=== PATIENT | male | born 1975 | race Hispanic/Latino ===

== ENCOUNTER → 2020-06-23 | Outpatient (CLI) | payer OTHER ==
--- NOTE | 2020-06-24 08:15 | REP ---
INDICATION: ABN FINDING OF LUNG COMPARISON: X-ray dated 05/20/2020 TECHNIQUE: Axial noncontrast images from the thoracic inlet to the upper abdomen with coronal and sagittal reformations. This CT examination was performed using the following dose reduction techniques: Automated exposure control, adjustment of mA and/or kv according to the patient's size, and use of iterative reconstruction technique. FINDINGS: Bilateral lung keith are well aerated, symmetric and clear. No consolidation, suspicious nodule, or mass lesion. Tracheobronchial tree is patent. No effusion. No pneumothorax. No adenopathy. Mediastinum demonstrates normal thoracic aorta, pulmonary vasculature, and heart/pericardium. Surrounding musculoskeletal structures are intact. Limited upper abdomen demonstrates normal bilateral adrenal glands. IMPRESSION: Normal noncontrast chest CT. No acute mediastinal or pleuroparenchymal process. <Electronically signed by Harmeet Preston > 06/24/20 0844
== END ==
LOC: M RAD 12:30
PROVIDERS: ATTEND Physician Assistant
DX: R91.8 Other nonspecific abnormal finding of lung field (principal)

== ENCOUNTER → 2020-07-15 | Outpatient (CLI) | payer OTHER ==
[~2020-07-15] MED LIST: METHACHOLINE KIT (J7674) INH ONE
--- NOTE | 2020-07-15 11:24 | PFTRPT ---
Height: 67.00 Inches Weight: 140.00 Lbs BSA: 1.74 Diagnosis: R05 DATE: 07/15/2020 ORDERED BY: SARABJIT Bowen QUALITY: Study of excellent technical quality. PROCEDURE: Under protocol, methacholine was administered. Even after a maximal dose of 25 mg or 188.875 CDUs, no provocation dose ever achieved. IMPRESSION: Negative methacholine challenge study. MTDD
== END ==
LOC: M CARPUL 10:43
PROVIDERS: ATTEND Physician Assistant
DX: R05 Cough (principal)
CPT/HCPCS: 94070; J7674

== ENCOUNTER → 2020-08-06 | Outpatient (CLI) | payer OTHER ==
--- NOTE | 2020-08-06 08:30 | REP ---
INDICATION: SPLENOMEGALY, LEFT LEG LUMP COMPARISON: None TECHNIQUE: Realtime grayscale B-mode ultrasound examination using linear high-frequency transducer. FINDINGS: Directed ultrasound examination over the left lower extremity at the site of palpable mass demonstrates a small subcutaneous cystic collection with internal debris measuring 2.8 x 1.3 x 0.3 cm. IMPRESSION: 1. Small nonspecific cystic collection. <Electronically signed by Harmeet Preston > 08/06/20 0827
--- NOTE | 2020-08-06 08:33 | REP ---
INDICATION: SPLENOMEGALY, LEFT LEG LUMP. COMPARISON: CT chest 06/23/2020 TECHNIQUE: Sonographic evaluation of the left upper quadrant. FINDINGS: Spleen is homogeneous and measures 9 x 8.6 x 2.9 cm. This gives calculated splenic index of 224 within normal range less than 480. Likewise, recent chest CT shows the spleen in its entirety with a vertical height of the 8.7 cm. There is no perisplenic fluid. The adjacent left kidney is 10.8 x 4.3 x 3.7 cm. There are 2 small cysts seen with the upper pole 10.6 x 6.4 mm cyst and a lower pole 7.5 x 7 x 3 mm cyst. No solid mass, hydronephrosis, stone or perinephric fluid. No generalized ascites or other abnormality visible in the left upper quadrant. IMPRESSION: 1. No evidence of splenomegaly, focal splenic lesion or perisplenic mass. No ascites. 2. Left kidney with 2 small simple cysts, no other finding. <Electronically signed by James Bueno > 08/06/20 7145
== END ==
LOC: M RAD 07:48
PROVIDERS: ATTEND Internal Medicine Medical Oncology
DX: R22.42 Localized swelling, mass and lump, left lower limb (principal); N28.1 Cyst of kidney, acquired

== ENCOUNTER → 2020-11-18 | Outpatient (CLI) | payer OTHER ==
[~2020-11-18] MED LIST changes: -METHACHOLINE KIT (J7674) INH ONE; +TRAM300T9 PO
[2020-11-18 15:30] LABS: APPEARANCE, URINE CLEAR (CLEAR); BACTERIA, URINE AUTO NEGATIVE (NEGATIVE); BILIRUBIN, URINE AUTO NEGATIVE (NEGATIVE); BLOOD, URINE BLOOD NEGATIVE (NEGATIVE); COLOR, URINE YELLOW (YELLOW); GLUCOSE, URINE (UA) AUTO NEGATIVE (NEGATIVE); KETONE, URINE AUTO NEGATIVE (NEGATIVE); LEUKOCYTE ESTERASE, URINE AUTO NEGATIVE (NEGATIVE); MUCUS, URINE SMALL (NEGATIVE); NITRITE, URINE AUTO NEGATIVE (NEGATIVE); PROTEIN, URINE AUTO NEGATIVE (NEGATIVE); RBC, URINE AUTO 0 /HPF (0-3); SQUAMOUS EPITHELIAL CELL UR AU 0 /HPF (0-6); UROBILINOGEN, URINE AUTO 0.2 mg/dL (0.0-2.0); WBC, URINE AUTO 1 /HPF (0-3)
[2020-11-18 15:31] LABS: BASO % 0.7 % (0.0-1.0); EOS # 0.1 10^3/uL (0.0-0.5); EOS % 2.3 % (0.0-3.0); HEMATOCRIT 45.1 % (42.0-52.0); HEMOGLOBIN 14.6 g/dl (13.5-17.5); LYMPH % 31.8 % (24.0-44.0); MEAN CORPUSCULAR HEMOGLOBIN 25.9 pg (27.0-33.0); MEAN CORPUSCULAR HGB CONC 32.4 g/dl (32.0-36.5); MEAN CORPUSCULAR VOLUME 80.1 fl (80.0-96.0); MONO # 0.4 10^3/uL (0.0-0.8); NEUTROPHILS # 1.6 10^3/uL (1.5-8.5); NEUTROPHILS % 53.2 % (36.0-66.0); PLATELET COUNT, AUTOMATED 226 10^3/uL (150-450); RED BLOOD COUNT 5.63 10^6/uL (4.30-6.10)
[2020-11-18 15:56] LABS: TOTAL PROTEIN,RANDOM URINE 9.5 MG/DL (0.0-12.0)
[2020-11-18 15:57] LABS: ALBUMIN 3.9 GM/DL (3.2-5.2); ALT/SGPT 31 U/L (12-78); BILIRUBIN,TOTAL 0.5 MG/DL (0.2-1.0); BLOOD UREA NITROGEN 15 MG/DL (7-18); CALCIUM LEVEL 9.4 MG/DL (8.5-10.1); CARBON DIOXIDE LEVEL 30 MEQ/L (21-32); CHLORIDE LEVEL 106 MEQ/L (98-107); COMPLEMENT C3 93 MG/DL (90-180); COMPLEMENT C4 24 MG/DL (10-40); CPK CREATINE PHOSPHOKINASE 418 U/L (39-308); CREATININE FOR GFR 1.14 MG/DL (0.70-1.30); GLOMERULAR FILTRATION RATE > 60.0 (>60); GLUCOSE, FASTING 92 MG/DL (70-100); POTASSIUM SERUM 4.1 MEQ/L (3.5-5.1); RHEUMATOID FACTOR QUANT < 10.0 IU/ML (<15.0); SODIUM LEVEL 139 MEQ/L (136-145); TOTAL PROTEIN 7.2 GM/DL (6.4-8.2)
[2020-11-18 16:11] LABS: ERYTHROCYTE SEDIMENTATION RATE 2 mm/hr (0-15)
== END ==
LOC: M PLALAB 12:28
PROVIDERS: ATTEND Internal Medicine Rheumatology
DX: R76.8 Other specified abnormal immunological findings in serum (principal); M25.50 Pain in unspecified joint; D72.810 Lymphocytopenia

== ENCOUNTER 2021-03-01 17:30 | Emergency (ER) | payer OTHER ==
[~2021-03-01] VITALS: Ht 170.2 cm; Wt 63.4 kg
--- OUTSIDE RECORDS SUMMARY | 2021-03-01 17:36 | CCD ---
Author Author [facility] Organization [facility] Address Unknown Phone Unavailable Care Team Providers Care Computer Programmer Chief Name Role Phone Alyson Machado Unavailable PROBLEMS Type Condition ICD9-CM Code [id number] Code Onset Dates Condition S tatus W/U Status Risk SNOMED Code Notes Problem Lymphopenia D72.810 Active confirmed [id number] ALLERGIES No Known Allergies ENCOUNTERS from 1975 to 2021-02-01 Encounter Location Date Provider Diagnosis [facility] Rhe[facility] [address] [place] [address] [place] [address] Jan, Alysonjose Machado STEPHANIA positive R76.8 ; Polyart hralgia M25.50 ; Lymphopenia D72.810 ; HLA B27 (HLA B27 positive) Z15.89 and Elevated CPK R74.8 IMMUNIZATIONS No Information SOCIAL HISTORY Tobacco Use: Social History Observation Description Date Details (start date - stop date) Sex Assigned At : Social History Observation Description Sex Assigned At Unknown Alcohol Screening: Question Answer Notes Did you have a drink containing alcohol in the past year? No Points 0 Interpretation Negative Tobacco Use: Question Answer Notes Are you a: never smoker REASON FOR REFERRAL No Information VITAL SIGNS Weight 144.6 lbs Jan, Weight-kg 65.59 kg Jan, Height 67 in Jan, BMI 22.65 kg/m2 Jan, Heart Rate 61 /min Jan, Respiratory Rate 18 /min Jan, Temperature 98.0 degrees Fahrenheit Jan, Oximetry 99% Jan, Blood pressure systolic 108 mm Hg Jan, Blood pressure diastolic 58 mm Hg Jan, MEDICATIONS Medication SIG (Take, Route, Frequency, Duration) Notes Start Da te End Date Status traMADol HCl 50 MG 1 tablet as needed Orally Once a day 4 times a day Active Ibuprofen 800 MG 1 tablet with food or milk as needed Ora lly Three times a day Not-Taking Zanaflex 4 MG 1 tablet as needed Orally HS for 30 Days Active PROCEDURES No Information RESULTS No Results REASON FOR VISIT Patient is here for a follow up appointment, last being seen 11/03/20. Denies any new concerns or complaints at this time. 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 splenomegaly with night time cough and occasional difficulty swallowing ? from GERD RF negative CCP xrays ordered pending Jan, Polyarthralgia (ICD-10 - M25.50) mild lateral deviation of right MCP right hip ER pain left hip trochanteric tenderness paraspinal muscle spams bialteral lumbar area right plantar fascitis awaiting surgery h/o chlamydia infection treated at 26 years of age STEPHANIA positive ? musculoskeletal from trochanteric bursitis , muscle spasm and spinal stenosis ( given relief on bending forward) eval for spondyloarthropathy given h/o chalmdia , plantar fasciits and back issues , HLA B27 positive d/c zanaflex given no improvement can try Voltaren / diclofenac gel as needed for the left hip pain Xrays ordered for further eval will order MRI pelvis to eval for sacroilitis after Jan, Lymphopenia (ICD-10 - D72.810) 07/2020 CBC with WBC 3.7 and abs lymphocyte 1 08/2020 CBC with WBC 3.5 and ALC 1 with ? splenomegaly r/o feltys - RF, CCP negative no features of SLE/ sjogrens Jan, HLA B27 (HLA B27 positive) (ICD-10 - Z15.89) POSITIVE ordered Xrays after will order MRI pelvis to eval for sacroilitis Jan, Elevated CPK (ICD-10 - R74.8) 418 aldolase normal STEPHANIA negative C3, C4 normal normal muscle strength close monitor ? body habitus and work out Jan, Other PATIENT INSTRUCTIONS : XRAYS ordered MRI pelvis normal recommend ortho follow up for eval of right hip issues PLAN OF TREATMENT Medication Medication Name Sig Start Date Stop Date Zanaflex 4 MG 1 tablet as needed Orally HS for 30 Days Treatment Notes Assessment Notes Clinical Notes STEPHANIA positive unclear titer , repe at negativeDsDNA, Enrique , SSA, SSB, RETIREMENT PLAN COUNSELOR negativemainly back and hip pains? splenomegalywith night time cough and occasional difficulty swallowing ? from GERDRF negative CCPxrays ordered pending Polyarthralgia mild lateral deviati on of right MCPright hip ER painleft hip trochanteric tendernessparaspinal muscle spams bialteral lumbar arearight plantar fascitis awaiting surgeryh/o chlamydia infection treated at 26 years of ageANA positive? musculoskeletal from trochanteric bursitis , muscle spasm and spinal stenosis ( given relief on bending forward)eval for spondyloarthropathy given h/o chalmdia , plantar fasciits and back issues , HLA B27 positived/c zanaflex given no improvementcan try Voltaren / diclofenac gel as needed for the left hip painXrays ordered for further evalwill order MRI pelvis to eval for sacroilitis after Lymphopenia 1CBC with WBC 3 .7 and abs lymphocyte /1CBC with WBC 3.5 and ALC 1with ? splenomegalyr/o feltys - RF, CCP negativeno features of SLE/ sjogrens HLA B27 (HLA B27 positive) POSITIVEorder ed Xraysafter will order MRI pelvis to eval for sacroilitis Elevated CPK 418aldolase normalAN A negativeC3, C4 normalnormal muscle strengthclose monitor? body habitus and work out Treatment Notes Test Name Order Date [facility] MRI PELVIS WITHOUT CONTRAST 2021-01-13 Next Appt Details 2 Months Reason: Provider Name:Alyson Machado, 10:45:00 AM, [address] [place] [address], , [place], [place], [facility], Insurance Providers Payer Name Payer Address Payer Phone Insured Name Patient Relati onship to Insured Coverage Start Date Coverage End Date [employer] DUTY [id number] [facility] [id number] CARLOS MARS self
--- OUTSIDE RECORDS SUMMARY | 2021-03-01 17:36 | CCD ---
Author Author [facility] Organization [facility] Address Unknown Phone Unavailable Care Team Providers Care Political Science Research Assistant Name Role Phone YOJANA GANN Unavailable Unavailable Piotr, E SERVICE TRANSFORMER REPAIR SUPERVISOR Glory Unavailable [phone] Piotr, E SERVICE TRANSFORMER REPAIR SUPERVISOR Glory Unavailable [phone] Piotr, E SERVICE TRANSFORMER REPAIR SUPERVISOR Glory Unavailable [phone] Piotr, E SERVICE TRANSFORMER REPAIR SUPERVISOR Glory Unavailable [phone] Piotr, E SERVICE TRANSFORMER REPAIR SUPERVISOR Glory Unavailable [phone] Piotr, E SERVICE TRANSFORMER REPAIR SUPERVISOR Glory Unavailable [phone] Piotr, E SERVICE TRANSFORMER REPAIR SUPERVISOR Glory Unavailable [phone] Piotr, E SERVICE TRANSFORMER REPAIR SUPERVISOR Glory Unavailable [phone] Piotr, E SERVICE TRANSFORMER REPAIR SUPERVISOR Glory Unavailable [phone] Piotr, E SERVICE TRANSFORMER REPAIR SUPERVISOR Glory Unavailable [phone] Piotr, E SERVICE TRANSFORMER REPAIR SUPERVISOR Glory Unavailable [phone] Piotr, E SERVICE TRANSFORMER REPAIR SUPERVISOR Glory Unavailable [phone] Piotr, E SERVICE TRANSFORMER REPAIR SUPERVISOR Glory Unavailable [phone] Piotr, E SERVICE TRANSFORMER REPAIR SUPERVISOR Glory Unavailable [phone] Piotr, E SERVICE TRANSFORMER REPAIR SUPERVISOR Glory Unavailable [phone] Piotr, E SERVICE TRANSFORMER REPAIR SUPERVISOR Glory Unavailable [phone] Piotr, E SERVICE TRANSFORMER REPAIR SUPERVISOR Glory Unavailable [phone] Piotr, E SERVICE TRANSFORMER REPAIR SUPERVISOR Glory Unavailable [phone] Piotr, E SERVICE TRANSFORMER REPAIR SUPERVISOR Glory Unavailable [phone] Piotr, E SERVICE TRANSFORMER REPAIR SUPERVISOR Glory Unavailable [phone] Piotr, E SERVICE TRANSFORMER REPAIR SUPERVISOR Glory Unavailable [phone] Piotr, E SERVICE TRANSFORMER REPAIR SUPERVISOR Glory Unavailable [phone] MO, M FRANCISCO PA Unavailable Unavailable MO, M FRANCISCO PA Unavailable Unavailable MO, M FRANCISCO PA Unavailable Unavailable MO, M FRANCISCO PA Unavailable Unavailable MO, M FRANCISCO PA Unavailable Unavailable MO, M FRANCISCO PA Unavailable Unavailable MO, M FRANCISCO PA Unavailable Unavailable MO, M FRANCISCO PA Unavailable Unavailable MO, M FRANCISCO PA Unavailable Unavailable MO, M FRANCISCO PA Unavailable Unavailable MO, M FRANCISCO PA Unavailable Unavailable MO, M FRANCISCO PA Unavailable Unavailable MO, M FRANCISCO PA Unavailable Unavailable MO, M FRANCISCO PA Unavailable Unavailable MO, M FRANCISCO PA Unavailable Unavailable MO, M FRANCISCO PA Unavailable Unavailable MO, M FRANCISCO PA Unavailable Unavailable MO, M FRANCISCO PA Unavailable Unavailable MO, M FRANCISCO PA Unavailable Unavailable MO, M FRANCISCO PA Unavailable Unavailable MO, M FRANCISCO PA Unavailable Unavailable MO, M FRANCISCO PA Unavailable Unavailable MO, M FRANCISCO PA Unavailable Unavailable MO, M FRANCISCO PA Unavailable Unavailable MO, M FRANCISCO PA Unavailable Unavailable MO, M FRANCISCO PA Unavailable Unavailable MO, M FRANCISCO PA Unavailable Unavailable MO, M FRANCISCO PA Unavailable Unavailable MO, M FRANCISCO PA Unavailable Unavailable MO, M FRANCISCO PA Unavailable Unavailable MO, M FRANCISCO PA Unavailable Unavailable MO, M FRANCISCO PA Unavailable Unavailable MO, M FRANCISCO PA Unavailable Unavailable MO, M FRANCISCO PA Unavailable Unavailable MO, M FRANCISCO PA Unavailable Unavailable Re-disclosure Warning The records that you are about to access may contain information from federally-assisted alcohol or drug abuse programs. If such information is present, then the following federally mandated warning applies: This information has been disclosed to you from records protected by federal confidentiality rules (42 CFR part 2). The federal rules prohibit you from making any further disclosure of this information unless further disclosure is expressly permitted by the written consent of the person to whom it pertains or as otherwise permitted by 42 CFR part 2. A general authorization for the release of medical or other information is NOT sufficient for this purpose. The Federal rules restrict any use of the information to criminally investigate or prosecute any alcohol or drug abuse patient.The records that you are about to access may contain highly sensitive health information, the redisclosure of which is protected by Article 27-F of the [facility] Public Health law. If you continue you may have access to information: Regarding HIV / AIDS; Provided by facilities licensed or operated by the [facility] Office of Mental Health; or Provided by the [facility] Office for People With Developmental Disabilities. If such information is present, then the following [facility] mandated warning applies: This information has been disclosed to you from confidential records which are protected by state law. State law prohibits you from making any further disclosure of this information without the specific written consent of the person to whom it pertains, or as otherwise permitted by law. Any unauthorized further disclosure in violation of state law may result in a fine or retirement sentence or both. A general authorization for the release of medical or other information is NOT sufficient authorization for further disc losure. Encounters Encounter Providers Location Date Indications Data Source(s ) Outpatient [address] [facility] [place] [id number] 01/13/2021 12:00:00 AM EDT eCW1 ([facility]) Unknown [address] [facility] [place] [id number] 11/24/2020 12:00:00 AM EDT eCW1 ([facility]) Outpatient [address] [facility] [place] [address] 11/03/2020 12:00:00 AM EDT eCW1 ([facility]) Outpatient Admitter: YOJANA GANNReferrer: YOJANA GANN 07/27/2020 12:00:00 AM EDT Decreased white blood cell count, unspecified [facility] Decreased white blood cell count, unspec ified Outpatient Referrer: Glory Saldaña _[id number] 07/19/2020 01 :31:36 PM EDT [facility] Outpatient Attender: FRANCISCO Kohler/[place] 07/06/2020 08:00:00 AM EST [facility] ([facility] ) Outpatient Referrer: Glory Saldaña 06/29/2020 07:41:04 AM ES T [facility] Outpatient 06/29/2020 07:12:43 AM EST [facility] Outpatient Attender: FRANCISCO Kohler/[place] 06/08/2020 09:30:00 AM EST [facility] Medications Medication Brand Name Start Date Product Form Dose Route Admi nistrative Instructions Pharmacy Instructions Status Indications Reaction Description Data Source(s) tizanidine 4 MG Oral Tablet [Zanaflex] Zanaflex 4 MG Zanafle x 4 MG 11/03/2020 12:00:00 AM EDT 1.0 {tablet_as_needed} active Zanaflex 4 MG eCW1 ([facility]) Insurance Providers Payer name Policy type / Coverage type Policy ID Covered democrat ID Covered democrat's relationship to spain Policy [place] Plan Information [facility] [id number] Self [id number] [facility] ACTIVE DUTY [id number] Problems, Conditions, and Diagnoses Code Display Name Description Problem Type Effective Dates Data Source(s) D72.819 Decreased white blood cell count, unspec ified Decreased white blood cell count, unspecified Diagnosis 07/27/2020 12:39:00 PM EDT [facility] D72.810 [id number] Lymphopenia Problem 11/03/2020 12:00:00 AM E DT eCW1 ([facility]) Surgeries/Procedures Procedure Description Date Indications Data Source(s) Bronchospasm Evaluation 06/29/2020 12:00:00 AM EST [facility] ([facility], ) Plethysmography Determination Lung Volumes & Per Airway Resi st 06/29/2020 12:00:00 AM EST [facility] ([facility] ) DIFFUSING CAPACITY 06/29/2020 12:00:00 AM EST [facility] ([facility], ) Spirometry 06/08/2020 12:00:00 AM SELMA PAZ ([facility], ) Results ID Date Data Source [id number] 07/29/2020 04:43:00 PM EDT [facility] Hematopathology ReportName: CARLOS BARTHMRN: [id number] Number: [id number] Date: 07/27/2020 00:00Received Date: 07/28/2020 13:34Physician(s): YOJANA GANN MD ADJAPONG, OPOK[place],[facility]) ReceivedA: Blood, Flow Cytometry; Received 2 green top PB (2 EDTA PB to Molecular)Clinical HistoryLeukopeniaTEST REQUESTED/PERFORMED: Flow cytometry analysis DiagnosisFlow cytometry of blood: No evidence of leukemia or non-Hodgkin lymphoma.Dana Law MD ; Hematopathology FellowElectronically Signed By MILADY GUAJARDO M.D. Attending Pathologist 116:43:18The attending pathologist named above attests that he/she has personallyreviewed the relevant preparation(s) for the specimen(s) and rendered thefinal diagnosis. ProceduresFlow Cytometry Date Ordered:07/28/2020 Status: Signed Out07/29/2020 InterpretationPERIPHERAL BLOOD: CBC performed at [facility] (07/27/20)WBC *3.7 K/uLRBC 5.31 M/uLHgb 14.2 g/dLHct 42.8 %MCV 80.6 fLMCH *26.7 pgMCHC 33.2 g/dLRDW 13.1 %Platelets 204 K/ulDifferential Count (automated):61.6 % Neutrophils 1.4 % Eosinophils 0.5 % Syzalrhad34.6 % Lymphocytes 0.3 % Immature Granulocytes 8.6 % Monocytes-------100.0 % A peripheral blood film shows lymphopenia. Lymphoid Panel: DanicaachoFelix [id number] following markers were assayed: CD45 (gate), CD2, CD3, CD4, CD5, CD7,CD8, CD10, CD19, CD20, CD38, CD56, CD57, [place], and Lambda.#events: [id number]: 99%Flow Cyto metry Differential (CD45/SSC)Lymphocyte Gwinn: 24%CD45 dim Gwinn: 0%Monocyte Gwinn: 3%Granulocyte Gwinn: 68%Nucleated/Erythroid Gwinn: 1%The lymphocyte gate showsB- cells (CD19): 11%T-cells (CD3): 61%NK-cells (CD3-/CD56+): 16%[place]/Lambda Ratio: 1.2CD4/CD8 Ratio: 2.9Results: (expressed as % of lymphocyte gate)T-cell Markers: CD2 = 73, CD3 = 61, CD3/CD4 = 42, CD3/CD8 = 15, CD5 = 68,CD7 = 73, CD3/57 = 6B-cell markers: [place] = 9, Lambda = 4, CD19 = 11, CD20 = 18, CD19/10 = 3,CD19/CD5 = 2, CD38/CD20 = 10Light chain as % of B-Cells: CD19/[place] = 43, CD19/Lambda = 40CD19/CD5/[place] = 1, CD19/CD5/Lambda = 1CD19/CD10/[place] = 8, CD19/CD10/Lambda = 6NK cell Markers: CD56 = 22, CD57 = 16Other Markers: CD10 = 4, CD38 = 52 Results-CommentsLymphocytes consist predominantly of T cells with normal expression of panT-cell markers and a normal CD4/CD8 ratio, normal proportions of NK andcytotoxic T cells, and polyclonal B cells.Procedure Electronically Signed By:MILADY GUAJARDO M.D.07/29/2020 This report may include one or more immunohistochemical stain/fluorochromeconjugated monoclonal antibody results that use analyte specific reagents.All positive and negative controls have been reviewed by the attendingpathologist and are satisfactory. The tests were developed and theirperformance characteristics determined by [facility] Pathology department.They have not been cleared or approved by the US Food and DrugAdministration. The FDA has determined that such clearance or approval isnot necessary. Name Value Range Interpretation Code Description Data Dominga rce(s) Supporting Document(s) ID Date Data Source [id number] 06/08/2020 01:28:00 PM EST [facility] Name Value Range Interpretation Code Description Data Dominga rce(s) Supporting Document(s) SARS coronavirus 2 RNA Not Detected [facility] [place] This lab was ordered by [facility] Laboratory and reported by [facility]. Procedure Social History Code Duration Value Status Description Data Source(s ) Smoking 01/13/2021 12:00:00 AM EDT UNK completed eCW1 ([facility]) Smoking 01/13/2021 12:00:00 AM EDT UNK completed eCW1 ([facility]) Smoking 11/03/2020 12:00:00 AM EDT UNK completed eCW1 ([facility]) Smoking 07/06/2020 12:00:00 AM EST Patient has never smoked co mpleted Patient has never smoked [facility] ([facility], ) Vital Signs ID Date Data Source UNK Name Value Range Interpretation Code Description Data Source(s) Body height 67 [in_i] 67 [in_i] eCW1 ([facility]) Body weight 144.6 [lb_av] 144.6 [lb_av] eCW1 ([facility]) Body weight 65.59 kg 65.59 kg eCW1 ([facility]) Diastolic blood pressure 58 mm[Hg] 58 mm[Hg] eCW1 ([facility]) Body mass index (BMI) [Ratio] 22.65 kg/m2 22.65 kg/m2 eCW1 ([facility]) Heart rate 61 /min 61 /min eCW1 ([facility]) Respiratory rate 18 /min 18 /min eCW1 (Replaced by [facility]) Body temperature 98.0 [degF] 98.0 [degF] eCW1 ( [facility]) Systolic blood pressure 108 mm[Hg] 108 mm[Hg] e CW1 ([facility]) Body weight 148.4 [lb_av] 148.4 [lb_av] eCW1 ([facility]) Body weight 67.3 kg 67.3 kg eCW1 ([facility]) Body height 67 [in_i] 67 [in_i] eCW1 ([facility]) Body mass index (BMI) [Ratio] 23.24 kg/m2 23.24 kg/m2 eCW1 ([facility]) Heart rate 64 /min 64 /min eCW1 ([facility]) Respiratory rate 18 /min 18 /min eCW1 (Replaced by [facility]) Body temperature 97.4 [degF] 97.4 [degF] eCW1 ( [facility]) Systolic blood pressure 118 mm[Hg] 118 mm[Hg] e CW1 ([facility]) Diastolic blood pressure 76 mm[Hg] 76 mm[Hg] eCW1 ([facility]) Systolic blood pressure 118 mm[Hg] 118 mm[Hg] M EDENT ([facility], ) Body height 67 [in_i] 67 [in_i] [facility] 5'7" Diastolic blood pressure 70 mm[Hg] 70 mm[Hg] [facility] ([facility]) Heart rate 54 /min 54 /min [facility] ([facility]) Oxygen saturation in Arterial blood by Pulse oximetry 99 % 99 % [facility] ([facility]) Body temperature 97.3 [degF] 97.3 [degF] [facility] ([facility]) Body weight 138.00 [lb_av] 138.00 [lb_av] MED[facility] T ([facility]) Body mass index (BMI) [Ratio] 21.6 kg/m2 21.6 k g/m2 [facility] ([facility]) [place] body weight 148 [lb_av] 148 [lb_av] MED[facility] T ([facility]) Body weight 62.597 kg 62.597 kg [facility] ([facility]) Body surface area Derived from formula 1.73 m2 1.73 m2 [facility] ([facility]) Body weight 140.00 [lb_av] 140.00 [lb_av] MED[facility] T ([facility]) Body mass index (BMI) [Ratio] 21.9 kg/m2 21.9 k g/m2 [facility] ([facility]) [place] body weight 148 [lb_av] 148 [lb_av] MED[facility] T ([facility]) Body weight 63.504 kg 63.504 kg [facility] ([facility]) Body surface area Derived from formula 1.74 m2 1.74 m2 [facility] ([facility]) Systolic blood pressure 120 mm[Hg] 120 mm[Hg] M EDENT ([facility]) Diastolic blood pressure 80 mm[Hg] 80 mm[Hg] [facility] ([facility]) Heart rate 65 /min 65 /min [facility] ([facility]) Oxygen saturation in Arterial blood by Pulse oximetry 99 % 99 % [facility] ([facility]) Body temperature 97.6 [degF] 97.6 [degF] [facility] ([facility]) Body height 67 [in_i] 67 [in_i] [facility] ([facility]) 5'7" Systolic blood pressure 110 mm[Hg] 110 mm[Hg] [facility] Diastolic blood pressure 70 mm[Hg] 70 mm[Hg] [facility] ([facility]) Heart rate 97 /min 97 /min [facility] ([facility]) Oxygen saturation in Arterial blood by Pulse oximetry 98 % 98 % [facility] ([facility]) Body temperature 97.3 [degF] 97.3 [degF] [facility] ([facility]) Body height 67 [in_i] 67 [in_i] [facility] ([facility]) 5'7" Body weight 140.00 [lb_av] 140.00 [facility]av[facility] Body mass index (BMI) [Ratio] 21.9 kg/m2 21.9 k g/m2 [facility] ([facility]) [place] body weight 148 [lb_av] 148 [lb_av] MED[facility] T ([facility]) Body weight 63.504 kg 63.504 kg [facility] ([facility]) Body surface area Derived from formula 1.74 m2 1.74 m2 [facility] ([facility]) Patient Treatment Plan of Care Planned Activity Planned Date Details Description Data Source (s) jarrettnidine 4 MG Oral Tablet [Zanaflex] 11/03/2020 12:00:00 AM EDT eCW1 ([facility])
--- OUTSIDE RECORDS SUMMARY | 2021-03-01 17:36 | CCD ---
Author Author [facility] Organization [facility] Address Unknown Phone Unavailable Care Team Providers Care Executive Wellness Programs Director Name Role Phone Alyson Machado Unavailable PROBLEMS Type Condition ICD9-CM Code [id number] Code Onset Dates Condition S tatus W/U Status Risk SNOMED Code Notes Problem Lymphopenia D72.810 Active confirmed [id number] ALLERGIES No Known Allergies ENCOUNTERS from 1975 to 2021-01-21 Encounter Location Date Provider Diagnosis [facility] Rheumatology [address] [place] [address] [place] [address] Nov, Alyson Machado IMMUNIZATIONS No Information SOCIAL HISTORY Tobacco Use: [...] REASON FOR REFERRAL No Information VITAL SIGNS No information MEDICATIONS Medication SIG (Take, Route, Frequency, Duration) [...] Information RESULTS No Results REASON FOR VISIT Request MRI results MEDICAL (GENERAL) HISTORY Type Description Date Medical History Anemia/ blood problems Medical History Lower back pain Medical History Right foot plantar fascitis Surgical History Dental surgery Goals Section No Information Health Concerns No Information MEDICAL EQUIPMENT No Information MENTAL STATUS No Information FUNCTIONAL STATUS No Information ASSESSMENTS No Information PLAN OF TREATMENT Medication Medication Name Sig Start Date Stop Date Zanaflex 4 MG 1 tablet as needed Orally HS for 30 Days Next Appt Details Provider Name:Alyson Machado, 10:45:00 AM, [address] [place] [address], , [place], [place], [facility], Insurance Providers Payer Name Payer Address Payer Phone Insured Name Patient Relati onship to Insured Coverage Start Date Coverage End Date [facility] ACTIVE DUTY [address] [facility] [id number] CARLOS MARS self
[2021-03-01 17:56] VITALS: BP 110/55
--- OUTSIDE RECORDS SUMMARY | 2021-03-01 18:27 | CCD ---
Author Author [facility] Organization [facility] Address Unknown Phone Unavailable Care Team Providers Care Cis Coordinator Name Role Phone YOJANA GANN Unavailable Unavailable Piotr, E CROP PRODUCTION ADVISOR Glory Unavailable [phone] Piotr, E CROP PRODUCTION ADVISOR Glory Unavailable [phone] Piotr, E CROP PRODUCTION ADVISOR Glory Unavailable [phone] Piotr, E CROP PRODUCTION ADVISOR Glory Unavailable [phone] Piotr, E CROP PRODUCTION ADVISOR Glory Unavailable [phone] Piotr, E CROP PRODUCTION ADVISOR Glory Unavailable [phone] Piotr, E CROP PRODUCTION ADVISOR Glory Unavailable [phone] Piotr, E CROP PRODUCTION ADVISOR Glory Unavailable [phone] Piotr, E CROP PRODUCTION ADVISOR Glory Unavailable [phone] Piotr, E CROP PRODUCTION ADVISOR Glory Unavailable [phone] Piotr, E CROP PRODUCTION ADVISOR Glory Unavailable [phone] Piotr, E CROP PRODUCTION ADVISOR Glory Unavailable [phone] Piotr, E CROP PRODUCTION ADVISOR Glory Unavailable [phone] Piotr, E CROP PRODUCTION ADVISOR Glory Unavailable [phone] Piotr, E CROP PRODUCTION ADVISOR Glory Unavailable [phone] Piotr, E CROP PRODUCTION ADVISOR Glory Unavailable [phone] Piotr, E CROP PRODUCTION ADVISOR Glory Unavailable [phone] Piotr, E CROP PRODUCTION ADVISOR Glory Unavailable [phone] Piotr, E CROP PRODUCTION ADVISOR Glory Unavailable [phone] Piotr, E CROP PRODUCTION ADVISOR Glory Unavailable [phone] Piotr, E CROP PRODUCTION ADVISOR Glory Unavailable [phone] Piotr, E CROP PRODUCTION ADVISOR Glory Unavailable [phone] [place], M FRANCISCO PA Unavailable Unavailable MO, [...] M FRANCISCO PA Unavailable Unavailable MO, M FRANCSICO PA Unavailable Unavailable MO, M FRANCISCO PA [...] is protected by Article 27-F of the [facility] Public Health law. If you continue you may have access to information: Regarding HIV / AIDS; Provided by facilities licensed or operated by the [facility] Office of Mental Health; or Provided by the [facility] Office for People With Developmental Disabilities. If such information is present, then the following [facility] mandated warning applies: This information has been [...] law may result in a fine or care home sentence or both. A general authorization for the release of medical or other information is NOT sufficient authorization for further disc losure. Encounters Encounter Providers Location Date Indications Data Source(s ) Outpatient [address] [facility] [place] [id number] 01/13/2021 12:00:00 AM EDT eCW1 ([facility]) Unknown [address] [facility] [place] [id number] 11/24/2020 12:00:00 AM EDT eCW1 ([facility]) Outpatient [address] [facility] [place] [id number] 11/03/2020 12:00:00 AM EDT eCW1 ([facility]) Outpatient Admitter: YOJANA GANNReferrer: YOJANA GANN 07/27/2020 12:00:00 AM EDT Decreased white blood cell count, unspecified [facility] Decreased white blood cell count, unspec ified Outpatient Referrer: Glory Saldaña _[id number] 07/19/2020 01 :31:36 PM EDT [facility] Outpatient Attender: FRANCISCO Kohler/Ernul/Israel/Rein dl 07/06/2020 08:00:00 AM EST [facility] ([facility] Outpatient Referrer: Glory Saldaña 06/29/2020 07:41:04 AM ES T [facility] Outpatient 06/29/2020 07:12:43 AM EST [facility] Outpatient Attender: FRANCISCO Kohler/Ernul/Israel/Rein dl 06/08/2020 09:30:00 AM EST [facility] ([facility] ) Medications Medication Brand Name Start Date Product Form Dose Route Admi nistrative Instructions Pharmacy Instructions Status Indications Reaction Description Data Source(s) tizanidine 4 MG Oral Tablet [Zanaflex] Zanaflex 4 MG Zanafle x 4 MG 11/03/2020 12:00:00 AM EDT 1.0 {tablet_as_needed} active Zanaflex 4 MG [facility] Insurance Providers Payer name Policy type / Coverage type Policy ID Covered republican ID Covered republican's relationship to [place] Policy [place] Plan Information [facility] [id number] Self [id number] [facility] [employer] [id number] Problems, Conditions, and Diagnoses Code Display Name Description Problem Type Effective Dates Data Source(s) D72.819 Decreased white blood cell count, unspec ified Decreased white blood cell count, unspecified Diagnosis 07/27/2020 12:39:00 PM EDT [facility] D72.810 [id number] Lymphopenia Problem 11/03/2020 12:00:00 AM E DT [facility] Surgeries/Procedures Procedure Description Date Indications Data Source(s) Bronchospasm Evaluation 06/29/2020 12:00:00 AM EST [facility] ([facility], ) Plethysmography Determination Lung Volumes & Per Airway Resi st 06/29/2020 12:00:00 AM EST [facility] ([facility], ) DIFFUSING CAPACITY 06/29/2020 12:00:00 AM EST [facility] ([facility], ) Spirometry 06/08/2020 12:00:00 AM SELMA PAZ ([facility], ) Results ID Date Data Source [id number] 07/29/2020 04:43:00 PM EDT [facility] Hematopathology ReportName: CARLOS BARTHMRN: [id number] Number: [id number] Date: 07/27/2020 00:00Received Date: 07/28/2020 13:34Physician(s): YOJANA GANN MD ADJAPONG, OPOKU[facility]) ReceivedA: Blood, Flow Cytometry; Received 2 [...] Signed Out07/29/2020 InterpretationPERIPHERAL BLOOD: CBC performed at [facility] (07/27/20)WBC *3.7 K/uLRBC 5.31 M/uLHgb 14.2 g/dLHct 42.8 %MCV 80.6 fLMCH *26.7 pgMCHC 33.2 g/dLRDW 13.1 %Platelets 204 K/ulDifferential Count (automated):61.6 % Neutrophils 1.4 % Eosinophils 0.5 % Xismtwrtd49.6 % Lymphocytes 0.3 % Immature Granulocytes 8.6 % Monocytes-------100.0 % A peripheral blood film shows lymphopenia. Lymphoid Panel: DanicaachoFelix [id number] following markers were assayed: CD45 (gate), CD2, CD3, CD4, CD5, CD7,CD8, CD10, CD19, CD20, CD38, CD56, CD57, [place], and Lambda.#events: [id number]: 99%Flow Cyto metry Differential (CD45/SSC)Lymphocyte Adams: 24%CD45 dim Adams: 0%Monocyte Adams: 3%Granulocyte Adams: 68%Nucleated/Erythroid Adams: 1%The lymphocyte gate showsB- cells (CD19): 11%T-cells (CD3): 61%NK-cells (CD3-/CD56+): 16%[place]/Lambda Ratio: 1.2CD4/CD8 Ratio: 2.9Results: (expressed as % of lymphocyte gate)T-cell Markers: CD2 = 73, CD3 = 61, CD3/CD4 = 42, CD3/CD8 = 15, CD5 = 68,CD7 = 73, CD3/57 = 6B-cell markers: [place] = 9, Lambda = 4, CD19 = 11, CD20 = 18, CD19/10 = 3,CD19/CD5 = 2, CD38/CD20 = 10Light chain as % of B-Cells: CD19/[place] = 43, CD19/Lambda = 40CD19/CD5/[place] = 1, CD19/CD5/Lambda = 1CD19/CD10/[place] = 8, CD19/CD10/Lambda = 6NK cell Markers: [...] were developed and theirperformance characteristics determined by [facility] Pathology department.They have not been cleared or approved by the US Food and DrugAdministration. The FDA has determined that such clearance or approval isnot necessary. Name Value Range Interpretation Code Description Data Dominga rce(s) Supporting Document(s) ID Date Data Source [id number] 06/08/2020 01:28:00 PM EST [facility] Name Value Range Interpretation Code Description Data Dominga rce(s) Supporting Document(s) SARS coronavirus 2 RNA Not Detected [facility] [place] This lab was ordered by [facility] Laboratory and reported by [facility]. Procedure Social History Code Duration Value Status Description Data Source(s ) Smoking 01/13/2021 12:00:00 AM EDT UNK completed [facility]) Smoking 01/13/2021 12:00:00 AM EDT UNK completed [facility]) Smoking 11/03/2020 12:00:00 AM EDT UNK completed [facility]CW[facility]) Smoking 07/06/2020 12:00:00 AM EST Patient has never smoked co mpleted Patient has never smoked MEDENT ([facility], ) Vital Signs ID Date Data Source UNK Name Value Range Interpretation Code Description Data Source(s) Body height 67 [in_i] 67 [in_i] eCW1 ([facility]) Body mass index (BMI) [Ratio] 22.65 kg/m2 22.65 kg/m2 [facility]) Heart rate 61 /min 61 /min eCW1 (On license of [facility]) Respiratory rate 18 /min 18 /min eCW1 ([facility]) Body temperature 98.0 [degF] 98.0 [degF] [facility] Systolic blood pressure 108 mm[Hg] 108 mm[Hg] e CW1 ([facility]) Diastolic blood pressure 58 mm[Hg] 58 mm[Hg] [facility]CW1 [facility] Body weight 144.6 [lb_av] 144.6 [lb_av] eCW1 ([facility]) Body weight 65.59 kg 65.59 kg eCW1 ([facility]) Body weight 148.4 [lb_av] 148.4 [lb_av] eCW1 ([facility]) Body weight 67.3 kg 67.3 kg eCW1 ([facility]) Body height 67 [in_i] 67 [in_i] eCW1 ([facility]) Body mass index (BMI) [Ratio] 23.24 kg/m2 23.24 kg/m2 [facility]CW[facility]) Heart rate 64 /min 64 /min eCW1 (On license of [facility]) Respiratory rate 18 /min 18 /min eCW1 ([facility]) Body temperature 97.4 [degF] 97.4 [degF] [facility] Systolic blood pressure 118 mm[Hg] 118 mm[Hg] e CW1 [facility]) Diastolic blood pressure 76 mm[Hg] 76 mm[Hg] eCW1 [facility]) Systolic blood pressure 118 mm[Hg] 118 mm[Hg] M EDENT ([facility]) Diastolic blood pressure 70 mm[Hg] 70 mm[Hg] MEDENT ([facility]) Heart rate 54 /min 54 /min [facility] ([facility]) Oxygen saturation in Arterial blood by Pulse oximetry 99 % 99 % [facility] ([facility]) Body temperature 97.3 [degF] 97.3 [degF] [facility] ([facility]) Body weight 138.00 [lb_av] 138.00 [lb_av] MEDEN T ([facility]) Body mass index (BMI) [Ratio] 21.6 kg/m2 21.6 k g/m2 [facility] ([facility]) [place] body weight 148 [lb_av] 148 [lb_av] [facility] Body weight 62.597 kg 62.597 kg [facility] ([facility]) Body surface area Derived from formula 1.73 m2 1.73 m2 [facility] ([facility]) Body height 67 [in_i] 67 [in_i] [facility] ([facility]) 5'7" Body weight 140.00 [lb_av] 140.00 [lb_av] MEDEN T ([facility]) Body mass index (BMI) [Ratio] 21.9 kg/m2 21.9 k g/m2 [facility] ([facility]) [place] body weight 148 [lb_av] 148 [lb_av] MED[facility] T ([facility]) Body weight 63.504 kg 63.504 kg [facility] ([facility]) Body surface area Derived from formula 1.74 m2 1.74 m2 [facility] ([facility]) Systolic blood pressure 120 mm[Hg] 120 mm[Hg] M EDENT ([facility]) Diastolic blood pressure 80 mm[Hg] 80 mm[Hg] [facility] ([facility]) Heart rate 65 /min 65 /min [facility] ([facility]) Oxygen saturation in Arterial blood by Pulse oximetry 99 % 99 % [facility] ([facility]) Body temperature 97.6 [degF] 97.6 [degF] [facility] ([facility]) Body height 67 [in_i] 67 [in_i] [facility] ([facility]) 5'7" Systolic blood pressure 110 mm[Hg] 110 [facility]Hg] [facility] Diastolic blood pressure 70 mm[Hg] 70 mm[Hg] [facility] ([facility]) Heart rate 97 /min 97 /min [facility] ([facility]) Oxygen saturation in Arterial blood by Pulse oximetry 98 % 98 % [facility] ([facility]) Body temperature 97.3 [degF] 97.3 [degF] [facility] ([facility]) Body height 67 [in_i] 67 [in_i] [facility] ([facility]) 5'7" Body weight 140.00 [lb_av] 140.00 [lb_av] [facility] Body mass index (BMI) [Ratio] 21.9 kg/m2 21.9 k g/m2 [facility] ([facility]) [place] body weight 148 [lb_av] 148 [lb_av] MED[facility] T ([facility]) Body weight 63.504 kg 63.504 kg [facility] ([facility]) Body surface area Derived from formula 1.74 m2 1.74 m2 [facility] ([facility]) Patient Treatment Plan of Care Planned Activity Planned Date Details Description Data Source (s) jarrettnidine 4 MG Oral Tablet [Zanaflex] 11/03/2020 12:00:00 AM EDT [facility])
[2021-03-01 18:28] LABS: BASO % 0.6 % (0.0-1.0); EOS # 0.1 10^3/uL (0.0-0.5); EOS % 2.2 % (0.0-3.0); HEMATOCRIT 40.5 % (42.0-52.0); LYMPH # 0.8 10^3/uL (1.5-5.0); LYMPH % 26.1 % (24.0-44.0); MEAN CORPUSCULAR HEMOGLOBIN 26.1 pg (27.0-33.0); MEAN CORPUSCULAR HGB CONC 32.1 g/dl (32.0-36.5); MEAN CORPUSCULAR VOLUME 81.3 fl (80.0-96.0); MONO # 0.4 10^3/uL (0.0-0.8); MONO % 11.6 % (2.0-8.0); NEUTROPHILS # 1.9 10^3/uL (1.5-8.5); NEUTROPHILS % 59.5 % (36.0-66.0); PLATELET COUNT, AUTOMATED 190 10^3/uL (150-450); RED BLOOD COUNT 4.98 10^6/uL (4.30-6.10); WHITE BLOOD COUNT 3.2 10^3/uL (4.0-10.0)
[2021-03-01 18:51] LABS: ALBUMIN 3.5 GM/DL (3.2-5.2); ALT/SGPT 23 U/L (12-78); BILIRUBIN,DIRECT < 0.1 MG/DL (0.0-0.2); BILIRUBIN,TOTAL 0.3 MG/DL (0.2-1.0); BLOOD UREA NITROGEN 13 MG/DL (7-18); C REACTIVE PROTEIN QUANTITATIV < 0.30 MG/DL (0.00-0.30); CALCIUM LEVEL 9.2 MG/DL (8.5-10.1); CARBON DIOXIDE LEVEL 33 MEQ/L (21-32); CHLORIDE LEVEL 109 MEQ/L (98-107); CK-MB VALUE MASS 1.3 NG/ML (<3.6); CPK CREATINE PHOSPHOKINASE 169 U/L (39-308); CREATININE FOR GFR 1.08 MG/DL (0.70-1.30); FREE T4 0.87 NG/DL (0.76-1.46); GLOMERULAR FILTRATION RATE > 60.0 (>60); GLUCOSE, FASTING 89 MG/DL (70-100); LIPASE 147 U/L (73-393); MB/CK RELATIVE INDEX 0.77 (< OR =4); NT-PRO BNP 32 PG/ML (<125); POTASSIUM SERUM 4.2 MEQ/L (3.5-5.1); SODIUM LEVEL 141 MEQ/L (136-145); TOTAL PROTEIN 6.4 GM/DL (6.4-8.2); TROPONIN I < 0.02 NG/ML (< 0.10)
[2021-03-01 19:00] LABS: ERYTHROCYTE SEDIMENTATION RATE 3 mm/hr (0-15)
--- NOTE | 2021-03-01 19:07 | REP ---
INDICATION: CHEST PAIN. COMPARISON: PA and lateral images of the chest 05/20/2020. TECHNIQUE: Upright AP portable chest image was obtained. FINDINGS: The lungs are clear. The heart borders, mediastinum and pulmonary vascular pattern normal. The upper abdominal bowel gas pattern is normal. There are no bony abnormalities of the chest. IMPRESSION: No evidence of acute cardiopulmonary pathology. <Electronically signed by Fuentes Dorsey > 03/01/21 0250
--- NOTE | 2021-03-03 19:57 | ECGEPIP ---
[facility] - ED Test Date: 2021-03-01 Pat Name: CARLOS MEJIA Department: Room: - Gender: Male Hostess: RS : 1975 Requested By: JADE CABAN Order Number: [id number] Reading MD: Mary Garcia Measurements Intervals [place] Rate: 53 P: 64 TX: 186 QRS: 70 QRSD: 78 T: 65 QT: 428 QTc: 401 Interpretive Statements Sinus bradycardia No prior Electronically Signed on 03-03-2021 19:56:45 EDT by Mary Garcia
== END 2021-03-01 19:42 | disposition home or self-care (01) ==
LOC: M ED 17:30
DX: R07.89 Other chest pain (principal); R00.2 Palpitations

== ENCOUNTER → 2021-03-08 | Outpatient (CLI) | payer OTHER ==
--- NOTE | 2021-03-08 14:46 | REP ---
INDICATION: STEPHANIA POSITIVE. COMPARISON: None. TECHNIQUE: Five views FINDINGS: Five views of the sacroiliac joints show them to be non-fused. There is no lysis or sclerosis of either the sacral or iliac side of either SI joint. There is no evidence of whiskering. There is no prominent osteophytosis. IMPRESSION: SI joints within normal limits. <Electronically signed by Kentrell Richardson > 03/08/21 [id number]
--- NOTE | 2021-03-08 14:58 | REP ---
INDICATION: STEPHANIA POSITIVE. COMPARISON: None TECHNIQUE: AP pelvis two views each hip FINDINGS: The femoral heads are spherical in shape and symmetric in appearance. The hip joint spaces are symmetric and well maintained bilaterally. There is no fracture, dislocation, or subluxation. There is no buttressing. IMPRESSION: Within normal limits bilaterally. <Electronically signed by Kentrell Richardson > 03/08/21 [id number]
--- NOTE | 2021-03-08 16:02 | REP ---
INDICATION: STEPHANIA POSITIVE. COMPARISON: None. TECHNIQUE: Four views each foot FINDINGS: Bilateral: The joint spaces are symmetric and relatively well maintained. There is no evidence of acute fracture or destructive osseous lesion. IMPRESSION: Within normal limits bilateral. <Electronically signed by Kentrell Richardson > 03/08/21 [id number]
--- NOTE | 2021-03-08 19:56 | REP ---
INDICATION: STEPHANIA POSITIVE. COMPARISON: None. TECHNIQUE: Four views on each side FINDINGS: Left hand: Distal radius and ulna, carpal bones, metacarpals, phalanges and all joints are without fracture, avulsion, focal bone lesion or erosion. No abnormal soft tissue calcification. No significant soft tissue swelling. Right hand: Distal radius and ulna and the carpal bones were unremarkable. Appears to be old healed and remodeled fracture of the proximal head of the 5th metacarpal. The other metacarpals and phalanges are intact. All joints are preserved with no erosion, abnormal soft tissue calcification or fracture. No significant soft tissue swelling. IMPRESSION: 1. Bilateral hands without fracture, avulsion, erosive changes, demineralization or other acute bony findings. No significant soft tissue swelling. <Electronically signed by James Beuno > 03/08/211951
== END ==
LOC: M RAD 10:42
PROVIDERS: ATTEND Internal Medicine Rheumatology
DX: R76.8 Other specified abnormal immunological findings in serum (principal); M25.50 Pain in unspecified joint

== ENCOUNTER → 2021-06-15 | Outpatient (CLI) | payer OTHER | LOC: M RAD 15:54 | PROVIDERS: ATTEND Internal Medicine Rheumatology | DX: Z15.89 Genetic susceptibility to other disease (principal) ==

== ENCOUNTER → 2021-10-28 | Outpatient (CLI) | payer OTHER ==
[~2021-10-28] MED LIST changes: +IBUP1TAB7 PO; +TRAM300T5 PO; -TRAM300T9 PO
[2021-10-28 15:39] LABS: BASO % 0.3 % (0.0-1.0); EOS # 0.1 10^3/uL (0.0-0.5); EOS % 1.7 % (0.0-3.0); HEMOGLOBIN 13.7 g/dl (13.5-17.5); LYMPH # 0.7 10^3/uL (1.5-5.0); LYMPH % 24.9 % (24.0-44.0); MEAN CORPUSCULAR HEMOGLOBIN 25.5 pg (27.0-33.0); MEAN CORPUSCULAR HGB CONC 31.9 g/dl (32.0-36.5); MEAN CORPUSCULAR VOLUME 80.1 fl (80.0-96.0); MONO # 0.4 10^3/uL (0.0-0.8); MONO % 11.8 % (2.0-8.0); NEUTROPHILS # 1.8 10^3/uL (1.5-8.5); PLATELET COUNT, AUTOMATED 207 10^3/uL (150-450); RED BLOOD COUNT 5.37 10^6/uL (4.30-6.10)
[2021-10-28 15:51] LABS: APPEARANCE, URINE CLEAR (CLEAR); BACTERIA, URINE AUTO NEGATIVE (NEGATIVE); BILIRUBIN, URINE AUTO NEGATIVE (NEGATIVE); BLOOD, URINE BLOOD NEGATIVE (NEGATIVE); COLOR, URINE YELLOW (YELLOW); GLUCOSE, URINE (UA) AUTO NEGATIVE (NEGATIVE); KETONE, URINE AUTO NEGATIVE (NEGATIVE); LEUKOCYTE ESTERASE, URINE AUTO NEGATIVE (NEGATIVE); MUCUS, URINE SMALL (NEGATIVE); NITRITE, URINE AUTO NEGATIVE (NEGATIVE); PROTEIN, URINE AUTO NEGATIVE (NEGATIVE); RBC, URINE AUTO 0 /HPF (0-3); SQUAMOUS EPITHELIAL CELL UR AU 0 /HPF (0-6); UROBILINOGEN, URINE AUTO 0.2 mg/dL (0.0-2.0); WBC, URINE AUTO 1 /HPF (0-3)
[2021-10-28 16:00] LABS: TOTAL PROTEIN,RANDOM URINE 18.7 MG/DL (0.0-12.0)
[2021-10-28 16:12] LABS: ALBUMIN 3.8 GM/DL (3.2-5.2); ALT/SGPT 26 U/L (12-78); BILIRUBIN,TOTAL 0.6 MG/DL (0.2-1.0); BLOOD UREA NITROGEN 16 MG/DL (7-18); CALCIUM LEVEL 9.4 MG/DL (8.5-10.1); CARBON DIOXIDE LEVEL 29 MEQ/L (21-32); CHLORIDE LEVEL 109 MEQ/L (98-107); COMPLEMENT C3 87 MG/DL (90-180); COMPLEMENT C4 24 MG/DL (10-40); GLOMERULAR FILTRATION RATE > 60.0 (>60); GLUCOSE, FASTING 90 MG/DL (70-100); LDH LACTATE DEHYDROGENASE 161 U/L (87-241); POTASSIUM SERUM 4.2 MEQ/L (3.5-5.1); SODIUM LEVEL 140 MEQ/L (136-145); TOTAL PROTEIN 6.7 GM/DL (6.4-8.2)
[2021-10-28 16:39] LABS: ERYTHROCYTE SEDIMENTATION RATE 2 mm/hr (0-15)
== END ==
LOC: M PLALAB 11:37
PROVIDERS: ATTEND Internal Medicine Rheumatology
DX: R76.8 Other specified abnormal immunological findings in serum (principal); M25.50 Pain in unspecified joint; D72.810 Lymphocytopenia; R74.9 Abnormal serum enzyme level, unspecified; Z15.89 Genetic susceptibility to other disease

== ENCOUNTER 2022-05-11 08:16 | Emergency (ER) | payer OTHER ==
[~2022-05-11] VITALS: Ht 170.2 cm; Wt 59.0 kg
[~2022-05-11 08:16] MED LIST changes: +ACET325C5 PO; +GABA-282; +GNP250TA9 PO
[2022-05-11 11:53] LABS: BASO % 0.6 % (0.0-1.0); EOS # 0.1 10^3/uL (0.0-0.5); EOS % 1.4 % (0.0-3.0); LYMPH # 0.8 10^3/uL (1.5-5.0); LYMPH % 23.2 % (24.0-44.0); MEAN CORPUSCULAR HGB CONC 32.6 g/dl (32.0-36.5); MEAN CORPUSCULAR VOLUME 79.9 fl (80.0-96.0); MONO # 0.3 10^3/uL (0.0-0.8); MONO % 9.5 % (2.0-8.0); NEUTROPHILS # 2.3 10^3/uL (1.5-8.5); NEUTROPHILS % 65.3 % (36.0-66.0); PLATELET COUNT, AUTOMATED 205 10^3/uL (150-450); RED BLOOD COUNT 5.38 10^6/uL (4.30-6.10); WHITE BLOOD COUNT 3.6 10^3/uL (4.0-10.0)
[2022-05-11 13:15] VITALS: BP 114/64
[2022-05-11 13:19] LABS: CK-MB VALUE MASS < 1.0 NG/ML (<3.6); MAGNESIUM LEVEL 1.8 MG/DL (1.8-2.4)
[2022-05-11 13:21] LABS: THYROXINE (T4) 9.4 UG/DL (4.5-10.9)
[2022-05-11 13:22] LABS: THYROID STIMULATING HORMONE 1.225 uIU/ML (0.55-4.78)
[2022-05-11 13:23] LABS: FREE THYROXINE INDEX 3.5 % (1.4-3.8); T UPTAKE 36.8 % (22.5-37.0)
[2022-05-11 13:24] LABS: ALBUMIN 3.7 G/DL (3.2-5.2); ALKALINE PHOSPHATASE 53 U/L (46-116); ALT/SGPT 24 U/L (7.0-40); AST/SGOT 22 U/L (<34); BILIRUBIN,TOTAL 0.7 MG/DL (0.3-1.2); BLOOD UREA NITROGEN 15 MG/DL (9-23); CALCIUM LEVEL 9.1 MG/DL (8.5-10.1); CARBON DIOXIDE LEVEL 27 MMOL/L (20-31); CHLORIDE LEVEL 104 MMOL/L (98-107); CPK CREATINE PHOSPHOKINASE 193 U/L (46-171); CREATININE FOR GFR 1.02 MG/DL (0.70-1.30); GLOMERULAR FILTRATION RATE > 60.0 (>60); GLUCOSE, FASTING 88 MG/DL (60-100); MB/CK RELATIVE INDEX 0.51 (< OR =4); POTASSIUM SERUM 4.4 MMOL/L (3.5-5.1); SODIUM LEVEL 138 MMOL/L (136-145); TOTAL PROTEIN 6.4 G/DL (5.7-8.2)
== END 2022-05-11 13:39 | disposition home or self-care (01) ==
LOC: M ED 08:16
DX: R00.2 Palpitations (principal); Z82.41 Family history of sudden cardiac death; Z82.49 Family history of ischemic heart disease and other diseases of the circulatory system; Z79.1 Long term (current) use of non-steroidal anti-inflammatories (NSAID); Z79.899 Other long term (current) drug therapy

== ENCOUNTER → 2022-08-08 | Outpatient (CLI) | payer OTHER | LOC: M PLAIMG 07:38 | PROVIDERS: ATTEND Nurse Practitioner Family | DX: M25.552 Pain in left hip (principal) ==

== ENCOUNTER → 2022-10-24 | Outpatient (CLI) | payer OTHER ==
[~2022-10-24] MED LIST changes: +MELO7.5T35; +PRAZ1CAP PO
[2022-10-24 13:31] LABS: CHOLESTEROL RISK RATIO 3.21 (<5); HDL CHOLESTEROL 60.3 MG/DL (>40); LDL CHOLESTEROL 115.5 MG/DL (<100); NON-HDL-C 133.7 MG/DL
== END ==
LOC: M PLALAB 09:18
PROVIDERS: ATTEND Physician Assistant
DX: R00.2 Palpitations (principal); R07.9 Chest pain, unspecified

== ENCOUNTER → 2023-01-05 | Outpatient (CLI) | payer OTHER | LOC: M PLAIMG 07:05 | PROVIDERS: ATTEND Pain Medicine Interventional Pain Medicine | DX: M51.16 Intervertebral disc disorders with radiculopathy, lumbar region (principal); M51.17 Intervertebral disc disorders with radiculopathy, lumbosacral region ==

== ENCOUNTER → 2025-03-12 | Outpatient (CLI) | payer OTHER ==
[~2025-03-12] MED LIST changes: +GABA-1172; -GABA-282; +PRAZ2CAP; +THERTAB52 PO; +TRAZ-257
== END ==
LOC: M RAD 15:44
PROVIDERS: ATTEND Nurse Practitioner Family
DX: R10.30 Lower abdominal pain, unspecified (principal); N40.0 Benign prostatic hyperplasia without lower urinary tract symptoms